=== PATIENT | male | born 1995 | race African-American/Black ===

== ENCOUNTER 2022-06-08 14:14 | Emergency (ER) | payer OTHER ==
[2022-06-08 14:30] VITALS: BP 122/75; PULSE 71; RESP 16; TEMP 98; BMI 22.8
[2022-06-08 16:26] LABS: EPI CELLS 8 /uL (0-25.1); HYALINE CASTS 2 /uL (0-3.1); PH,URINE 7.5 (5.0-8.0); URINE APPEARANCE CLEAR; URINE BACTERIA 10 /uL (0-1359); URINE BILIRUBIN NEGATIVE (NEGATIVE); URINE COLOR YELLOW; URINE GLUCOSE (UA) NEGATIVE (NEGATIVE); URINE KETONE TRACE (NEGATIVE); URINE LEUK ESTERASE TRACE (NEGATIVE); URINE NITRITE NEGATIVE (NEGATIVE); URINE PROTEIN TRACE (NEGATIVE); URINE RBC 7 /uL (0-23.9); URINE WBC 50 /uL (0-25.8)
[2022-06-08 17:01] LABS: SYPHILIS W/ RPR CONF NON-REACTIVE (NONREACTIVE)
[2022-06-08 17:30] LABS: HIV INTERPRETATION NEGATIVE (NEGATIVE)
== END 2022-06-08 15:36 | disposition home or self-care (01) ==
LOC: JERFT 14:14
DX: Z11.3 Encounter for screening for infections with a predominantly sexual mode of transmission (principal)
CPT/HCPCS: 36415; 81003; 86780; 87086; 87389; 87491; 87529; 87591; 87661; 99283-25